=== PATIENT | male | born 1960 | race Hispanic/Latino ===

== ENCOUNTER 2022-05-14 14:03 | Outpatient (AMB) | payer MEDICAID, SELFPAY ==
--- NOTE | 2022-05-14 15:22 | RT.TREATMENT ---
Office Procedures RT Procedures Procedures EEG Extended Monitoring Awake/Drowsy: Yes
== END 2022-05-14 15:17 | disposition home or self-care (01) ==
LOC: HODRTX 14:03
PROVIDERS: PCP Specialist; Visit Provider Specialist
DX: R94.01 Abnormal electroencephalogram [EEG] (principal)